=== PATIENT | male | born 1980 | race Caucasian/White ===

== ENCOUNTER 2018-04-02 07:02 | Observation (INO) | payer MEDICAID, OTHER ==
[~2018-04-02] VITALS: Ht 177.8 cm; Wt 75.6 kg
--- NOTE | 2018-04-02 07:20 | NUR ---
NO ANSWER, NOT IN LOBBY
--- NOTE | 2018-04-02 07:29 | NUR ---
Pt ambulates with steady gait and balance from triage to ed room. No defecits observed. DANYELLEN.
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
[2018-04-02] MEDS ORDERED: LIDOCAINE-MPF 1%, 5ML ONE (07:45)
--- NOTE | 2018-04-02 07:48 | NUR ---
Pt states, "If you're going to take my stuff because I said I want to kill myself, then I take it back. I am not going to kill myself." Pt now denying SI. Pt displaying manipulative behaviors and cursing at this RN. Pt throws bag of canned food and chips on ED floor. Pt yells at this RN, "You bitch." Discussed with ED MD. No legal hold is being initiated per ED MD.
[2018-04-02] MEDS ORDERED: LIDOCAINE-MPF 1%, 5ML INFIL ONE (08:00)
[2018-04-02] MEDS ORDERED: LORazepam 1MG TABLET ONE (08:24)
[2018-04-02] MEDS ORDERED: ZIPRASIDONE 20 MG INJ IM ONE (08:30)
[2018-04-02] MEDS ORDERED: LORazepam 1MG TABLET PO ONE (08:30)
[2018-04-02 08:40] LABS: BASOPHILS # (AUTO) 0.02 x10^3/uL (0-0.1); BASOPHILS % (AUTO) 0 % (0-1); EOSINOPHILS # (AUTO) 0.09 x10^3/uL (0-0.4); EOSINOPHILS % (AUTO) 1 % (1-7); LYMPHOCYTES # (AUTO) 1.05 x10^3/uL (1-3.4); LYMPHOCYTES % (AUTO) 9 % (22-44); MD NO; MEAN CORPUSCULAR HGB CONC 33.8 g/dL (33.2-36.2); MEAN CORPUSCULAR VOLUME 94.6 fL (81-97); MEAN PLATELET VOLUME 8.6 fL (7.4-10.4); MONOCYTES # (AUTO) 0.92 x10^3/uL (0.2-0.8); MONOCYTES % (AUTO) 8 % (2-9); NEUTROPHILS # (AUTO) 9.23 x10^3/uL (1.8-6.8); NEUTROPHILS % (AUTO) 82 % (42-75); PLATELET COUNT 249 x10^3/uL (130-400); RED BLOOD COUNT 4.59 x10^6/uL (4.38-5.82); RED CELL DISTRIBUTION WIDTH 14.1 % (9.4-14.8)
[2018-04-02 08:52] LABS: ALANINE AMINOTRANSFERASE 166 U/L (12-78); ALBUMIN 3.7 g/dL (3.4-5.0); ANION GAP 8 mmol/L (5-15); CALCIUM 8.4 mg/dL (8.5-10.1); CHLORIDE 104 mmol/L (98-107); CREATININE 1.08 mg/dL (0.7-1.3)
[2018-04-02 08:54] LABS: ALKALINE PHOSPHATASE 83 U/L (45-117); BILIRUBIN,TOTAL 1.5 mg/dL (0.2-1.0); TOTAL PROTEIN 8.3 g/dL (6.4-8.2)
[2018-04-02 08:57] LABS: ACETAMINOPHEN < 2 mcg/mL (10-30); SALICYLATE LEVEL < 1.7 mg/dL (2.8-20.0)
--- NOTE | 2018-04-02 09:05 | NUR ---
LATE NOTE ENTRY FOR 0803. PT YELLING IN ROOM, "I AM A FUCKING HUMAN BEING." PT EXITS DOORWAY OF ROOM AND REMOVES ALL OF HIS CLOTHING IN ED HALLWAY. PT STATES, "I AM NOT GOING TO DISCHARGE. I WILL KILL MYSELF IF I AM DISCHARGED. I AM FUCKING HUMAN BEING." PT RETURNED TO ED ROOM UPON ED STAFF REQUEST. PT RELEASED PERSONAL BELONGINGS TO AIR CARRIER OPERATIONS INSPECTOR FOR SAFE KEEPING IN ED LOCKER. SECURITY AT BEDSIDE APPROXIMATELY AT 0805. SECURITY PROVIDED DE-ESCALATION TECHNIQUES AND PT FOLLOWS VERBAL COMMANDS. ROOM SECURED PER SI PROTOCOL. PT PROVIDED HOSPITAL G[facility].
--- NOTE | 2018-04-02 09:08 | NUR ---
LATE NOTE FOR 829. WENT TO PROVIDE MEDICATION PER EMAR. PT STATES, "GEODON GIVES ME DYSTONIA. LOTS OF THINGS GIVE ME DYSTONIA. I WILL TAKE IT THOUGH." SPOKE TO ED MD. MEDICATION ORDER CHANGED. PROVIDED NEW MEDICATION ORDER PER EMAR. PT STATED UNDERSTANDING AND CONSENT.
--- NOTE | 2018-04-02 09:09 | NUR ---
PT REQUESTING FOOD TRAY. ORDERING FOOD TRAY FOR PT.
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
--- NOTE | 2018-04-02 10:49 | NUR ---
PT UNABLE TO PROVIDE URINE SAMPLE AT THIS TIME. MALE RN HAVE ESCORTED PT TO RESTROOM PER REQUEST. PT PROVIDED WATER. SITTER NEAR DOORWAY IN DIRECT LINE OF SIGHT FOR OBSERVATION. ALL SI PRECAUTIONS IN PLACE.
[2018-04-02 12:04] LABS: AMPHETAMINE SCREEN, URINE Positive (Negative); BARBITURATE SCREEN, URINE Negative (Negative); BENZODIAZEPINE SCREEN, URINE Negative (Negative); CANNABINOID SCREEN, URINE Positive (Negative); COCAINE SCREEN, URINE Negative (Negative); METHADONE SCREEN, URINE Negative (Negative); OPIATE SCREEN, URINE Negative (Negative)
--- NOTE | 2018-04-02 13:27 | NUR ---
LATE NOTE ENTRY FOR 1130. PT RESTING ON ANDREW. SANDRA. SITTER NEAR DOOR WAY IN DIRECT LINE OF SIGHT FOR OBSERVATION. ALL SI PRECAUTIONS IN PLACE. PT REQUESTS CHAPSTICK AND SOCKS. PROVIDED PT CHAPSTICKS AND SOCKS. NO OTHER NEEDS EXPRESSED AT THIS TIME.
--- NOTE | 2018-04-02 13:28 | NUR ---
LATE NOTE ENTRY FOR 1245. PROVIDED PT LUNCH FOOD TRAY. PT APPRECIATIVE. NADN. NO NEEDS EXPRESSED AT THIS TIME. ALL SI PRECAUTIONS IN PLACE. SITTER NEAR DOORWAY IN DIRECT LINE OF SIGHT FOR OBSERVATION.
--- NOTE | 2018-04-02 13:30 | NUR ---
PT ASLEEP ON [facility] NO NEEDS EXPRESSED AT THIS TIME. NADN. SITTER NEAR DOORWAY IN DIRECT LINE OF SIGHT FOR OBSERVATION. ALL SI PRECAUTIONS IN PLACE.
--- NOTE | 2018-04-02 15:52 | NUR ---
LATE NOTE ENTRY FOR 1400. PT SLEEPING ON ANDREW. NADN. NO NEEDS REQUESTED AT THIS TIME. SITTER NEAR DOOR WAY IN DIRECT LINE OF SIGHT FOR OBSERVATION.
--- NOTE | 2018-04-02 15:52 | NUR ---
PT RESTING ON GURNEY. PROVIDED PT WARM BLANKETS PER REQUEST. PT APPRECIATIVE. NO NEEDS EXPRESSED AT THIS TIME. NADN. SITTER NEAR DOORWAY IN DIRECT LINE OF SIGHT FOR OBSERVATION.
--- NOTE | 2018-04-02 16:26 | NUR ---
HOSPITALIST OVERNIGHT HOUSEPERSON AT BEDSIDE. NADN. NO NEEDS EXPRESSED AT THIS TIME.
[2018-04-02] MEDS ORDERED: ONDANSETRON ODT 4 MG PO PRN ×2 (16:30→18:30)
[2018-04-02] MEDS ORDERED: POLYETHYLENE GLYCOL 17 GM PACKET PO PRN ×2 (16:30→18:30)
[2018-04-02] MEDS ORDERED: DOCUSATE 100 MG CAPSULE PO PRN (16:30)
[2018-04-02] MEDS ORDERED: BISACODYL 10 MG SUPP PR PRN ×2 (16:30→18:30)
[2018-04-02] MEDS ORDERED: ACETAMINOPHEN 325 MG TABLET PO PRN ×2 (16:30→18:30)
[2018-04-02] MEDS ORDERED: OLANZAPINE 10 MG TABLET ONE (17:00)
[2018-04-02] MEDS: OLANZAPINE 10 MG TABLET PO SCH (17:05)
--- NOTE | 2018-04-02 17:41 | NUR ---
PT PROVIDED DINNER MEAL TRAY. PT APPRECIATIVE. PT PROVIDED MEDICATIONS PER EMAR. PT APPRECIATIVE. PT WATCHING TV AND RESTING ON GURNEY. NADN. NO NEEDS EXPRESSED AT THIS TIME. SITTER NEAR DOORWAY IN DIRECT LINE OF SIGHT FOR OBSERVATION.
--- NOTE | 2018-04-02 18:07 | NUR ---
PT AMBULATES WITH STEADY GAIT AND BALANCE TO RESTROOM. PT RETURNS TO ROOM. PT OBSERVED WITH SI PRECAUTIONS.
--- NOTE | 2018-04-02 18:25 | NUR ---
PACKET FAXED TO [facility]
[2018-04-02] MEDS ORDERED: DIPHENHYDRAMINE 50 MG CAPSULE PO PRN (18:30)
--- NOTE | 2018-04-02 18:34 | NUR ---
PT RESTING ON [place] WATCHING TV. NADN. NO NEEDS EXPRESSED AT THIS TIME. SITTER NEAR DOORWAY IN DIRECT LINE OF SIGHT FOR OBSERVATION.
--- NOTE | 2018-04-02 18:58 | NUR ---
Provided report to JUANCARLOS Finney. All questions answered. JUANCARLOS Finney assuming care of pt at this time.
--- NOTE | 2018-04-02 19:20 | NUR ---
PT RESTING WITH EYES CLOSED, NADN, EQUAL CHEST RISE/FALL OBSERVED, SITTER AT DOORWAY FOR CONTINOUS MONITORING.
[2018-04-02] MEDS ORDERED: DOXYCYCLINE 100MG TABLET ONE (20:00)
[2018-04-02] MEDS ORDERED: GABAPENTIN 300 MG CAPSULE ONE (20:01)
--- NOTE | 2018-04-02 20:52 | NUR ---
LATE KELLEN 2010- PT RESTING ON SANDRA MORALES, DENIES PAIN OR NEEDS AT THSI TIME, SITTER AT DOORWAY FOR CONTINOUS MONITORING.
[2018-04-02] MEDS ORDERED: MUPIROCIN OINT 2%, 22GM TP SCH (21:00)
[2018-04-02] MEDS: DOXYCYCLINE 100MG TABLET PO SCH (21:11)
[2018-04-02] MEDS: GABAPENTIN 300 MG CAPSULE PO SCH (21:12)
[2018-04-02] MEDS: MUPIROCIN OINT 2%, 22GM TP SCH (21:13)
--- NOTE | 2018-04-02 21:15 | NUR ---
PT RESTING CALMLY, OPENS EYES TO VERBAL RESPONSE,NAD, DENIES NEEDS, ROOM REMAINS SECURED, SITTER AT DOORWAY FOR CONTINOUS MONITORING.
--- NOTE | 2018-04-02 22:09 | NUR ---
PT RESTING CALMLY, REPOSITIONED SELF IN BED, OPENS EYES TO VERBAL RESPONSE,NAD, DENIES NEEDS, SITTER AT DOORWAY FOR CONTINOUS MONITORING.
--- NOTE | 2018-04-02 23:10 | NUR ---
PT RESTING CALMLY, NAD, DENIES NEEDS, SITTER AT DOORWAY FOR CONTINOUS MONITORING.
--- NOTE | 2018-04-03 00:41 | NUR ---
PT RESTING CALMLY WITH EYES CLOSED, NADN, REPOSITIONED SELF, EQUAL CHEST RISE/FALL OBSERVED, SITTER AT DOORWAY FOR CONTINOUS MONITORING.
--- NOTE | 2018-04-03 01:23 | NUR ---
PT RESTING CALMLY, REPOSITIONED SELF IN BED,NAD, DENIES NEEDS, SITTER AT DOORWAY FOR CONTINOUS MONITORING.
--- NOTE | 2018-04-03 01:53 | NUR ---
PROVIDED PT WITH SNACK AND WATER PER HIS REQUEST, DENIES FURTHER NEEDS AT THIS TIME.
--- NOTE | 2018-04-03 03:25 | NUR ---
LATE ENTRY 0300-PT RESTING CALMLY WITH EYES CLOSED, NADN, REPOSITIONED SELF, EQUAL CHEST RISE/FALL OBSERVED, SITTER AT DOORWAY FOR CONTINOUS MONITORING.
--- NOTE | 2018-04-03 04:05 | NUR ---
PT RESTING CALMLY, NAD, DENIES NEEDS, SITTER AT DOORWAY FOR CONTINOUS MONITORING.
--- NOTE | 2018-04-03 04:57 | NUR ---
PROVIDED PT WITH SNACK PER HIS REQUEST. GAS DISTRIBUTION SUPERVISOR AT PT'S BEDSIDE FOR LAB DRAW, PT COOPERATIVE. Addendum: 04/03/18 at 0459 by HOLLY JORGE LUIS REMAINS AT DOORWAY FOR CONTINOUS MONITORING.
[2018-04-03 05:13] LABS: BASOPHILS # (AUTO) 0.02 x10^3/uL (0-0.1); BASOPHILS % (AUTO) 0 % (0-1); EOSINOPHILS # (AUTO) 0.09 x10^3/uL (0-0.4); EOSINOPHILS % (AUTO) 1 % (1-7); LYMPHOCYTES # (AUTO) 1.58 x10^3/uL (1-3.4); LYMPHOCYTES % (AUTO) 24 % (22-44); MD NO; MEAN CORPUSCULAR HEMOGLOBIN 31.5 pg (27.5-34.5); MEAN CORPUSCULAR HGB CONC 33.4 g/dL (33.2-36.2); MEAN CORPUSCULAR VOLUME 94.3 fL (81-97); MEAN PLATELET VOLUME 8.6 fL (7.4-10.4); MONOCYTES # (AUTO) 0.71 x10^3/uL (0.2-0.8); MONOCYTES % (AUTO) 11 % (2-9); NEUTROPHILS # (AUTO) 4.27 x10^3/uL (1.8-6.8); NEUTROPHILS % (AUTO) 64 % (42-75); PLATELET COUNT 219 x10^3/uL (130-400); RED CELL DISTRIBUTION WIDTH 14.3 % (9.4-14.8)
[2018-04-03 05:22] LABS: CALCIUM 8.4 mg/dL (8.5-10.1); CHLORIDE 109 mmol/L (98-107)
[2018-04-03 05:31] LABS: ALANINE AMINOTRANSFERASE 128 U/L (12-78); ALKALINE PHOSPHATASE 70 U/L (45-117); ANION GAP 5 mmol/L (5-15); BILIRUBIN,TOTAL 0.4 mg/dL (0.2-1.0); TOTAL PROTEIN 6.9 g/dL (6.4-8.2)
--- NOTE | 2018-04-03 06:22 | NUR ---
PT RESTING CALMLY, REPOSITIONED SELF IN BED, OPENS EYES TO VERBAL RESPONSE,NAD, DENIES NEEDS, SITTER AT DOORWAY FOR CONTINOUS MONITORING.
--- NOTE | 2018-04-03 06:57 | NUR ---
RECEIVED BEDSIDE REPORT FROM JUANCARLOS PARK.
--- NOTE | 2018-04-03 07:09 | NUR ---
DIET TRAY ORDERED
--- NOTE | 2018-04-03 07:29 | NUR ---
PT SNORING ON GURNEY. NO ACUTE DISTRESS NOTED. ALL SAFETY MEASURES OBTAINED. SITTER AT DOORWAY, PT WITHIN FULL VIEW. RESPS EQUAL AND UNLABORED. WILL CONTINUE TO MONITOR.
--- NOTE | 2018-04-03 07:58 | NUR ---
PT CONTINUES TO SLEEP ON GURNEY. PT STILL SNORING. RESPS EQUAL AND UNLABORED. ALL SAFETY MEASURES OBTAINED. WILL CONTINUE TO MONITOR.
--- NOTE | 2018-04-03 08:09 | NUR ---
DIET SIOBHANY DELIVERED. PT APPRECIATIVE.
[2018-04-03] MEDS ORDERED: CITALOPRAM 20 MG TABLET ONE (08:18)
[2018-04-03] MEDS ORDERED: DOXYCYCLINE 100MG TABLET ONE ×2 (08:18→20:13)
[2018-04-03] MEDS ORDERED: GABAPENTIN 300 MG CAPSULE ONE ×2 (08:19→20:13)
[2018-04-03] MEDS ORDERED: OLANZAPINE 10 MG TABLET ONE (08:19)
[2018-04-03] MEDS: DOXYCYCLINE 100MG TABLET PO SCH ×2 (08:23→20:26)
[2018-04-03] MEDS: CITALOPRAM 20 MG TABLET PO SCH (08:24)
[2018-04-03] MEDS: OLANZAPINE 10 MG TABLET PO SCH (08:24)
[2018-04-03] MEDS: GABAPENTIN 300 MG CAPSULE PO SCH ×3 (08:24→23:35)
[2018-04-03] MEDS: MUPIROCIN OINT 2%, 22GM TP SCH ×3 (08:25→23:35)
--- NOTE | 2018-04-03 08:34 | NUR ---
PT AMBULATORY WITH STEADY GAIT TO BATHROOM. NO ACUTE DISTRESS NOTED. MEDICATIONS ADMINISTERED PER EMAR. NO NEEDS REQUESTED AT THIS TIME. ALL SAFETY MEASURES OBTAINED.
--- NOTE | 2018-04-03 08:38 | NUR ---
PT RESTING ON GURNEY. NO ACUTE DISTRESS NOTED. PT STATES "I STILL WANT TO KILL MYSELF. I HAVE A PLAN WITH A GUN. I'M HOMELESS, THAT'S A LOT OF THE REASON. THERE'S MORE, BUT THAT'S THE MAIN ONE. IT SUCKS BEING HOMELESS." ALL SAFETY MEASURES OBTAINED.
[2018-04-03] MEDS ORDERED: SENNA/DOCUSATE TABLET PO SCH (09:00)
[2018-04-03] MEDS ORDERED: TERBINAFINE 250MG TABLET PO SCH (09:00)
--- NOTE | 2018-04-03 09:07 | NUR ---
PT SLEEPING ON GURNEY. NO ACUTE DISTRESS NOTED. RESPS EQUAL AND UNLABORED. ALL SAFETY MEASURES OBTAINED. WILL CONTINUE TO MONITOR.
--- NOTE | 2018-04-03 09:22 | NUR ---
CHANNEL CHANGED FOR PATIENT. PT ASKED TO LEAVE IT ON A NEWS STATION.
--- NOTE | 2018-04-03 10:35 | NUR ---
PT SLEEPING ON GURNEY. RESPS EQUAL AND UNLABORED. ALL SAFETY MEASURES OBTAINED. NO ACUTE DISTRESS NOTED. SITTER AT DOORWAY. PT WITHIN FULL VIEW. WILL CONTINUE TO MONITOR.
--- NOTE | 2018-04-03 11:25 | NUR ---
PT SLEEPING ON GURNEY. NO ACUTE DISTRESS NOTED. RESPS EQUAL AND UNLABORED. ALL SAFETY MEASURES OBTAINED. SITTER AT DOORWAY, PT WITHIN FULL VIEW. WILL CONTINUE TO MONITOR. DIETARY STATED THEY WILL BRING LUNCH AT 1130
--- NOTE | 2018-04-03 12:29 | NUR ---
DIET TRAY DELIVERED. PT SITTING ONGURNEY EATING. ALL SAFETY MEASURES OBTAINED. NO NEEDS REQUESTED AT THIS TIME.
--- NOTE | 2018-04-03 13:37 | NUR ---
PT SLEEPING ON GURNEY. NO ACUTE DISTRESS NOTED. RESPS EQUAL AND UNLABORED. ALL SAFETY MEASURES OBTAINED. SITTER AT DOORWAY, PT WITHIN FULL VIEW.
--- NOTE | 2018-04-03 14:20 | NUR ---
PT CONTINUES TO SLEEP ON GURNEY. NO ACUTE DISTRESS NOTED. RESPS EQUAL AND UNLABORED. ALL SAFETY MEASURES OBTAINED. SITTER AT DOORWAY, PT WITHIN FULL VIEW.
--- NOTE | 2018-04-03 14:59 | NUR ---
DIET TRAY DELIVERED. PT RESTING ONGURNEY. NO ACUTE DISTRESS NOTED. ALL SAFETY MEASURES OBTAINED. SITTER AT DOORWAY.
--- NOTE | 2018-04-03 16:46 | NUR ---
LATE ENTRY FOR 1600 PT SLEEPING ON GURNEY. NO ACUTE DISTRESS NOTED. ALL SAFETY MEASURES OBTAINED. WILL CONTINUE TO MONITOR.
--- NOTE | 2018-04-03 17:28 | NUR ---
PT RESTING ON GURNEY. NO ACUTE DISTRESS NOTED. DIET TRAY HAS BEEN ORDERED. ALL SAFETY MEASURES OBTAINED.
--- NOTE | 2018-04-03 18:06 | NUR ---
DIET TRAY DELIVERED. PT APPRECIATIVE AND CALM. ALL SAFETY MEASURES OBTAINED. NO OTHER NEEDS REQUESTED AT THIS TIME.
--- NOTE | 2018-04-03 18:55 | NUR ---
BEDSIDE REPORT TO JUANCARLOS ADAMS.
--- NOTE | 2018-04-03 19:01 | NUR ---
BEDSIDE REPORT RECEIVED FROM JUANCARLOS WAHL. ASSUMED CARE OF PT. PT RESTING ON GURNEY IN NAD. ROOM REMAINS SECURE. SITTER OUTSIDE DOOR. WILL CONTINUE TO MONITOR.
--- NOTE | 2018-04-03 20:26 | NUR ---
PT MEDICATED PER EMAR. 5 RIGHTS ADDRESSED. PT ALSO PROVIDED WITH WATER AND A SNACK. DENIES ANY NEEDS AT THIS TIME. WILL CONTINUE TO MONITOR.
--- NOTE | 2018-04-03 21:28 | NUR ---
PT PROVIDED WITH WATER. SITTER OUTSIDE DOOR MONITORING PT. ROOM REMAINS SECURE
--- NOTE | 2018-04-03 22:26 | NUR ---
Attempted to call for report, RN's busy and said they will call back
--- NOTE | 2018-04-03 22:42 | NUR ---
REPORT TO JUANCARLOS GIBSON.
[2018-04-03 23:01] VITALS: BP 131/85
[2018-04-03] MEDS: LORazepam 1MG TABLET PO PRN (23:41)
[2018-04-04 08:12] VITALS: BP 131/83
[2018-04-04] MEDS: MUPIROCIN OINT 2%, 22GM TP SCH ×3 (09:00→19:53)
[2018-04-04] MEDS: CITALOPRAM 20 MG TABLET PO SCH (09:38)
[2018-04-04] MEDS: DOXYCYCLINE 100MG TABLET PO SCH ×2 (09:39→19:53)
[2018-04-04] MEDS: GABAPENTIN 300 MG CAPSULE PO SCH ×3 (09:39→19:53)
[2018-04-04] MEDS: OLANZAPINE 10 MG TABLET PO SCH (09:39)
[2018-04-04] MEDS: IBUPROFEN 600 MG TABLET PO PRN ×2 (10:01→16:14)
[2018-04-04] MEDS: LORazepam 1MG TABLET PO PRN ×2 (10:01→16:14)
[2018-04-04 11:36] VITALS: BP 118/76
[2018-04-04 20:37] VITALS: BP 113/68
[2018-04-05 00:42] VITALS: BP 120/85
[2018-04-05 08:25] VITALS: BP 129/87
[2018-04-05] MEDS ORDERED: CITALOPRAM 20 MG TABLET PO SCH (09:00)
[2018-04-05] MEDS ORDERED: GABAPENTIN 300 MG CAPSULE PO SCH (09:00)
[2018-04-05] MEDS ORDERED: OLANZAPINE 10 MG TABLET PO SCH (09:00)
[2018-04-05] MEDS: MUPIROCIN OINT 2%, 22GM TP SCH ×3 (09:15→20:14)
[2018-04-05] MEDS: LORazepam 1MG TABLET PO PRN ×2 (09:15→16:54)
[2018-04-05] MEDS: GABAPENTIN 300 MG CAPSULE PO SCH ×3 (09:15→20:13)
[2018-04-05] MEDS: IBUPROFEN 600 MG TABLET PO PRN ×2 (09:15→16:54)
[2018-04-05] MEDS: CITALOPRAM 20 MG TABLET PO SCH (09:16)
[2018-04-05] MEDS: DOXYCYCLINE 100MG TABLET PO SCH ×2 (09:16→20:13)
[2018-04-05] MEDS: OLANZAPINE 10 MG TABLET PO SCH (09:16)
[2018-04-05 15:35] VITALS: BP 127/87
[2018-04-05 19:56] VITALS: BP 119/79
[2018-04-06 00:21] VITALS: BP 113/82
[2018-04-06] MEDS: LORazepam 1MG TABLET PO PRN ×2 (08:32→21:17)
[2018-04-06] MEDS: DOXYCYCLINE 100MG TABLET PO SCH ×2 (08:32→21:17)
[2018-04-06] MEDS: GABAPENTIN 300 MG CAPSULE PO SCH ×3 (08:32→21:17)
[2018-04-06] MEDS: IBUPROFEN 600 MG TABLET PO PRN (08:32)
[2018-04-06] MEDS: OLANZAPINE 10 MG TABLET PO SCH (08:32)
[2018-04-06] MEDS: CITALOPRAM 20 MG TABLET PO SCH (08:33)
[2018-04-06] MEDS: MUPIROCIN OINT 2%, 22GM TP SCH ×3 (08:33→21:17)
[2018-04-06 11:04] VITALS: BP 117/77
[2018-04-06 15:41] VITALS: BP 121/94
[2018-04-06 19:27] VITALS: BP 124/84
[2018-04-07 03:11] VITALS: BP 106/63
[2018-04-07 08:45] VITALS: BP 110/60
[2018-04-07] MEDS: GABAPENTIN 300 MG CAPSULE PO SCH ×3 (08:45→22:01)
[2018-04-07] MEDS: MUPIROCIN OINT 2%, 22GM TP SCH ×2 (08:45→15:06)
[2018-04-07] MEDS: DOXYCYCLINE 100MG TABLET PO SCH ×2 (08:45→22:01)
[2018-04-07] MEDS: CITALOPRAM 20 MG TABLET PO SCH (08:45)
[2018-04-07] MEDS: OLANZAPINE 10 MG TABLET PO SCH (08:45)
[2018-04-07] MEDS: LORazepam 1MG TABLET PO PRN ×3 (08:48→22:01)
[2018-04-07 14:42] VITALS: BP 135/89
[2018-04-07] MEDS: IBUPROFEN 600 MG TABLET PO PRN (15:05)
[2018-04-07 19:30] VITALS: BP 111/71
[2018-04-08 01:09] LABS: MICROSCOPIC NOT IND
[2018-04-08 01:10] LABS: CULTURE INDICATED? NO
[2018-04-08 01:44] VITALS: BP 121/77
[2018-04-08] MEDS: LORazepam 1MG TABLET PO PRN ×3 (05:22→17:53)
[2018-04-08 07:42] VITALS: BP 129/96
[2018-04-08] MEDS: GABAPENTIN 300 MG CAPSULE PO SCH ×3 (08:36→20:22)
[2018-04-08] MEDS: CITALOPRAM 20 MG TABLET PO SCH (08:37)
[2018-04-08] MEDS: DOXYCYCLINE 100MG TABLET PO SCH ×2 (08:37→20:22)
[2018-04-08] MEDS: OLANZAPINE 10 MG TABLET PO SCH (08:37)
[2018-04-08 13:22] VITALS: BP 120/81
[2018-04-08 19:49] VITALS: BP 119/78
[2018-04-08] MEDS: IBUPROFEN 600 MG TABLET PO PRN (20:22)
[2018-04-09] MEDS: LORazepam 1MG TABLET PO PRN ×4 (01:14→21:08)
[2018-04-09 01:53] VITALS: BP 118/75
[2018-04-09 07:45] VITALS: BP 129/85
[2018-04-09] MEDS: GABAPENTIN 300 MG CAPSULE PO SCH ×3 (09:44→21:08)
[2018-04-09] MEDS: OLANZAPINE 10 MG TABLET PO SCH (09:44)
[2018-04-09] MEDS: DOXYCYCLINE 100MG TABLET PO SCH (09:44)
[2018-04-09] MEDS: CITALOPRAM 20 MG TABLET PO SCH (09:44)
[2018-04-09 14:40] VITALS: BP 125/85
[2018-04-09] MEDS: IBUPROFEN 600 MG TABLET PO PRN ×2 (16:11→23:17)
[2018-04-09 20:54] VITALS: BP 130/84
[2018-04-10 02:22] VITALS: BP 108/70
[2018-04-10] MEDS: LORazepam 1MG TABLET PO PRN ×4 (05:17→23:19)
[2018-04-10] MEDS: IBUPROFEN 600 MG TABLET PO PRN (05:17)
[2018-04-10 07:19] VITALS: BP 137/87
[2018-04-10] MEDS: OLANZAPINE 10 MG TABLET PO SCH (07:58)
[2018-04-10] MEDS: CITALOPRAM 20 MG TABLET PO SCH (07:58)
[2018-04-10] MEDS: GABAPENTIN 300 MG CAPSULE PO SCH ×3 (07:59→21:40)
[2018-04-10 12:06] VITALS: BP 123/81
[2018-04-10 19:44] VITALS: BP 126/75
[2018-04-11 03:24] VITALS: BP 123/80
[2018-04-11] MEDS: LORazepam 1MG TABLET PO PRN ×3 (05:27→17:17)
[2018-04-11 08:12] VITALS: BP 131/80
[2018-04-11] MEDS: GABAPENTIN 300 MG CAPSULE PO SCH ×3 (09:01→22:46)
[2018-04-11] MEDS: OLANZAPINE 10 MG TABLET PO SCH (09:02)
[2018-04-11] MEDS: CITALOPRAM 20 MG TABLET PO SCH (09:02)
[2018-04-11 14:13] VITALS: BP 122/85
[2018-04-11] MEDS ORDERED: ZIPRASIDONE 20MG CAPSULE ONE (16:26)
[2018-04-11] MEDS ORDERED: ZIPRASIDONE 20MG CAPSULE PO ONE (16:30)
[2018-04-11 20:13] VITALS: BP 112/62
[2018-04-12 01:06] VITALS: BP 130/82
[2018-04-12] MEDS: LORazepam 1MG TABLET PO PRN (03:06)
[2018-04-12] MEDS ORDERED: [UNRECOGNIZED DRUG - REMARK] MC SCH (08:00)
[2018-04-12 08:33] VITALS: BP 131/71
[2018-04-12] MEDS ORDERED: ZIPRASIDONE 20MG CAPSULE PO SCH (09:00)
[2018-04-12] MEDS: OLANZAPINE 10 MG TABLET PO SCH (09:17)
[2018-04-12] MEDS: CITALOPRAM 20 MG TABLET PO SCH (09:17)
[2018-04-12] MEDS: GABAPENTIN 300 MG CAPSULE PO SCH ×3 (09:18→20:09)
[2018-04-12] MEDS: ZIPRASIDONE 20MG CAPSULE PO SCH (11:41)
[2018-04-12 15:29] VITALS: BP 132/76
[2018-04-12 20:10] VITALS: BP 114/83
[2018-04-13 01:43] VITALS: BP 112/83
[2018-04-13 08:17] VITALS: BP 121/67
[2018-04-13] MEDS: CITALOPRAM 20 MG TABLET PO SCH (09:10)
[2018-04-13] MEDS: GABAPENTIN 300 MG CAPSULE PO SCH ×3 (09:11→21:02)
[2018-04-13] MEDS: OLANZAPINE 10 MG TABLET PO SCH (09:11)
[2018-04-13] MEDS: ZIPRASIDONE 20MG CAPSULE PO SCH (09:14)
[2018-04-13 13:20] VITALS: BP 120/73
[2018-04-13 18:25] VITALS: BP 127/69
[2018-04-14 01:54] VITALS: BP 118/84
[2018-04-14 07:08] VITALS: BP 128/87
[2018-04-14] MEDS: OLANZAPINE 10 MG TABLET PO SCH (08:45)
[2018-04-14] MEDS: ZIPRASIDONE 20MG CAPSULE PO SCH (08:45)
[2018-04-14] MEDS: CITALOPRAM 20 MG TABLET PO SCH (08:45)
[2018-04-14] MEDS: GABAPENTIN 300 MG CAPSULE PO SCH (08:45)
[2018-04-14 13:08] VITALS: BP 130/82
[2018-04-14] MEDS ORDERED: OLAN10TA3 PO (16:07)
[2018-04-14] MEDS ORDERED: ESCI10TA10 PO (16:07)
[2018-04-14] MEDS ORDERED: GABA300C10 PO (16:08)
== END 2018-04-14 16:20 | disposition home or self-care (01) ==
LOC: ED 08:58 → EDIP 16:23 → 2N 04-03 22:56 → 4NOR 04-04 11:21
PROVIDERS: ADMIT Hospitalist; ATTEND Hospitalist
DX: R45.851 Suicidal ideations (principal); B35.0 Tinea barbae and tinea capitis; F12.20 Cannabis dependence, uncomplicated; F15.10 Other stimulant abuse, uncomplicated; F31.81 Bipolar II disorder; K59.09 Other constipation; Z59.0 Homelessness; Z79.899 Other long term (current) drug therapy; Z81.8 Family history of other mental and behavioral disorders; Z87.820 Personal history of traumatic brain injury; Z91.19 Patient's noncompliance with other medical treatment and regimen
CPT/HCPCS: 36415; 80053; 80074; 80307; 80329; 81003; 85025; 87521; 87806; 99284; G0378; G0475; G0480